=== PATIENT | male | born 2000 | race African-American/Black ===

== ENCOUNTER 2021-01-27 12:22 | Emergency (ER) | payer SELFPAY | END 2021-01-27 13:17 | disposition home or self-care (01) | LOC: ERS 12:22 | DX: Z02.79 Encounter for issue of other medical certificate (principal); F17.210 Nicotine dependence, cigarettes, uncomplicated | CPT/HCPCS: 99283 ==

== ENCOUNTER 2021-03-16 15:22 | Emergency (ER) | payer SELFPAY ==
[2021-03-16 23:09] LABS: SARS-CoV-2 PCR by NAA Not Detected (NotDetected)
== END 2021-03-16 17:35 | disposition home or self-care (01) ==
LOC: ERS 15:22
DX: R05 Cough (principal); Z20.822 Contact with and (suspected) exposure to COVID-19
CPT/HCPCS: 99283; U0003; U0005

== ENCOUNTER 2025-03-08 15:20 | Emergency (ER) | payer BC, OTHER, SELFPAY | END 2025-03-08 16:45 | disposition home or self-care (01) | LOC: ERS 15:20 | DX: J06.9 Acute upper respiratory infection, unspecified (principal); F17.290 Nicotine dependence, other tobacco product, uncomplicated; Z55.6 Problems related to health literacy | CPT/HCPCS: 87426; 99283 ==

== ENCOUNTER 2025-03-20 08:33 | Emergency (ER) | payer OTHER ==
[2025-03-20] MEDS ORDERED: Dexamethasone 10 MG/ML VIAL ONE (10:12)
== END 2025-03-20 10:15 | disposition home or self-care (01) ==
LOC: ERS 08:33
DX: J02.8 Acute pharyngitis due to other specified organisms (principal); F17.290 Nicotine dependence, other tobacco product, uncomplicated
CPT/HCPCS: 87081; 87426; 87430; 99283; J1100

== ENCOUNTER 2025-04-07 20:13 | Emergency (ER) | payer OTHER | END 2025-04-07 21:02 | disposition home or self-care (01) | LOC: ERS 20:13 | DX: R11.2 Nausea with vomiting, unspecified (principal); F17.290 Nicotine dependence, other tobacco product, uncomplicated | CPT/HCPCS: 99282 ==

== ENCOUNTER 2025-04-24 10:47 | Emergency (ER) | payer OTHER | END 2025-04-24 11:15 | disposition home or self-care (01) | LOC: ERS 10:47 | DX: R19.7 Diarrhea, unspecified (principal); F17.290 Nicotine dependence, other tobacco product, uncomplicated | CPT/HCPCS: 99283 ==

== ENCOUNTER 2025-04-27 11:33 | Emergency (ER) | payer OTHER ==
[2025-04-27] MEDS ORDERED: Dicyclomine 20 MG TAB ONE (12:30)
[2025-04-27 13:11] LABS: ALT (SGPT) 15 U/L (Less than 45); AST (SGOT) 26 U/L (11-34); Albumin 4.4 g/dL (3.1-4.5); Alkaline Phosphatase 52 U/L (40-110); Anion Gap 18 mmol/L (10-20); BUN (Urea Nitrogen) 11 mg/dL (8.9-20.6); Bilirubin, Total 0.7 mg/dL (0.3-1.2); Calc. Creatinine Clearance 0 mL/min (70-130); Calcium 9.5 mg/dL (7.8-10.44); Carbon Dioxide 14 mmol/L (22-29); Chloride 107 mmol/L (98-107); Globulin 3.4 g/dL (2.4-3.5); Glucose 86 mg/dL (70-105); Potassium 4.3 mmol/L (3.5-5.1); Sodium 135 mmol/L (136-145)
[2025-04-27 13:34] LABS: #Basophils 0.07 10x3/uL (0.0-0.2); #Eosinophils 0.05 10x3/uL (0.0-0.7); #Monocytes 0.65 10x3/uL (0.11-0.59); #Neutrophils 3.72 10x3/uL (1.40-6.50); %Basophils 1.0 % (0.0-1.0); %Eosinophils 0.7 % (0.0-10.0); %Lymphocytes 34.3 % (21.0-51.0); %Monocytes 9.5 % (0.0-10.0); %Neutrophils 54.4 % (42.0-75.0); Hematocrit 45.0 % (42.0-52.0); Hemoglobin 14.3 g/dL (14.0-18.0); Mean Corpuscular Hemoglobin 23.4 pg (27.0-31.0); Mean Corpuscular Volume 73.6 fL (78.0-98.0); Platelet Count 197 10x3/uL (130-400); Red Blood Cell (RBC) Count 6.11 mill/uL (4.70-6.10); White Blood Cell (WBC) Count 6.85 10x3/uL (4.8-10.8)
[2025-04-27 13:52] LABS: Anisocytosis SLIGHT = 6-15 cells HPF (0-5); Macrocytosis SLIGHT = 6-15 cells HPF (0-5); Microcytosis SLIGHT = 6-15 cells HPF (0-5); Ovalocytes SLIGHT = 2-5 cells HPF (0-1); Platelet Adequacy Comment Platelets Normal; Schistocytes SLIGHT = 2-5 cells HPF (0-1); Target Cells SLIGHT = 2-5 cells HPF (0-1)
== END 2025-04-27 13:48 | disposition home or self-care (01) ==
LOC: ERS 11:33
DX: R19.7 Diarrhea, unspecified (principal); F17.290 Nicotine dependence, other tobacco product, uncomplicated
CPT/HCPCS: 36415; 80053; 85025; 99283

== ENCOUNTER 2025-05-06 18:48 | Emergency (ER) | payer OTHER | END 2025-05-06 20:00 | disposition home or self-care (01) | LOC: ERS 18:48 | DX: J32.0 Chronic maxillary sinusitis (principal); F17.290 Nicotine dependence, other tobacco product, uncomplicated | CPT/HCPCS: 87428; 99283 ==